=== PATIENT | male | born 1965 | race Caucasian/White ===

== ENCOUNTER → 2016-07-21 | Outpatient (CLI) | payer MEDICAID ==
--- NOTE | 2016-07-22 09:46 | ECHOF ---
Referral Reason:I42 cardiomyopathy MEASUREMENTS -------- HEIGHT: 180.3 cm WEIGHT: 95.3 kg BP: IVSd: 1.0 cm (0.6 - 1.1) LVIDd: 6.5 cm (3.9 - 5.3) LVPWd: 1.3 cm (0.6 - 1.1) IVSs: 1.0 cm LVIDs: 5.7 cm LVPWs: 1.1 cm Ao Diam: 3.3 cm (2.0 - 3.7) AV Cusp: 2.2 cm (1.5 - 2.6) LA Diam: 4.6 cm (2.7 - 3.8) MV EXCURSION: 16.312 mm (> 18.000) MV EF SLOPE: 115 mm/s (70 - 150) EPSS: 1.8 cm MV E Victor Hugo: 0.66 m/s MV DecT: 324 ms MV A Victor Hugo: 0.73 m/s MV E/A Ratio: 0.90 RAP: 5.00 mmHg RVSP: 44.17 mmHg FINDINGS -------- Sinus rhythm. Pacerwire seen in RV and RA. AICD Pacemaker This was a technically good study. The left ventricle is severely dilated. Left ventricular wall thickness is normal. There is severe global hypokinesis of LV . Overall left ventricular systolic function is severely impaired with, an EF between 25 - 30 %. Known cardiomyopathy The right ventricle is normal in size and function. The left atrium is moderately dilated. The right atrium is normal in size. Aortic valve is trileaflet and is mildly thickened. The mitral valve leaflets are mildly thickened. Mild mitral regurgitation is present. Mild tricuspid regurgitation present. There is mild pulmonary hypertension. The right ventricular systolic pressure, as measured by Doppler, is 44.17mmHg. Pulmonic valve appears structurally normal. The aortic root size is normal. The pericardium is normal. CONCLUSIONS -------- 1. Sinus rhythm. 2. Known cardiomyopathy 3. The right ventricle is normal in size and function. 4. The left atrium is moderately dilated. 5. The right atrium is normal in size. 6. Aortic valve is trileaflet and is mildly thickened. 7. The mitral valve leaflets are mildly thickened. 8. Mild mitral regurgitation is present. 9. Mild tricuspid regurgitation present. 10. There is mild pulmonary hypertension. 11. The right ventricular systolic pressure, as measured by Doppler, is 44.17mmHg. 12. Pacerwire seen in RV and RA. 13. Pulmonic valve appears structurally normal. 14. The aortic root size is normal. 15. The pericardium is normal. 16. AICD 17. Pacemaker 18. This was a technically good study. 19. The left ventricle is severely dilated. 20. Left ventricular wall thickness is normal. 21. There is severe global hypokinesis of LV . 22. Overall left ventricular systolic function is severely impaired with, an EF between 25 - 30 %. REVENUE AUDIT CLERK: Joanna Obregon RDCS
== END | disposition home or self-care (01) ==
LOC: RADECHMAIN 13:03
PROVIDERS: ATTEND Internal Medicine Clinical Cardiac Electrophysiology
DX: I42.9 Cardiomyopathy, unspecified (principal); I50.1 Left ventricular failure, unspecified; I08.3 Combined rheumatic disorders of mitral, aortic and tricuspid valves; I27.2 Other secondary pulmonary hypertension; Z95.810 Presence of automatic (implantable) cardiac defibrillator
CPT/HCPCS: 93306

== ENCOUNTER → 2016-09-15 | Outpatient (CLI) | payer MEDICAID ==
[2016-09-15 12:13] LABS: CH 31.2; CHCM 33.8; HCT 38.7 % (39.0-53.0); HDW 2.58; HGB 13.5 gm/dL (13.0-17.5); MCH 32.4 pg (25.0-35.0); MCHC 34.9 g/dL (31.0-37.0); MCV 92.8 fL (80.0-100.0); Mean Platelet Volume 7.2; RBC 4.16 m/uL (4.30-5.90); RDW 12.7 % (11.5-15.5); WBC 4.9 k/uL (3.8-10.6)
[2016-09-15 12:33] LABS: Anion Gap 9 mmol/L; Blood Urea Nitrogen 16 mg/dL (9-20); Calcium 9.6 mg/dL (8.4-10.2); Carbon Dioxide 26 mmol/L (22-30); Chloride 107 mmol/L (98-107); Glucose 111 mg/dL (74-99); Non-African American GFR(MDRD) >60 (>60 ml/min/1.73 sqM); Potassium 4.7 mmol/L (3.5-5.1); Sodium 142 mmol/L (137-145)
== END | disposition home or self-care (01) ==
LOC: LABWHC1 11:46
PROVIDERS: ATTEND Internal Medicine Clinical Cardiac Electrophysiology
DX: E78.2 Mixed hyperlipidemia (principal); I42.0 Dilated cardiomyopathy; I47.2 Ventricular tachycardia
CPT/HCPCS: 36415; 80048; 85027

== ENCOUNTER 2016-09-19 06:00 | Day surgery (SDC) | payer MEDICAID ==
[2016-09-14 14:28] VITALS: BMI 27.1
[~2016-09-19 06:00] MED LIST: LACTATED RINGERS 1,000 ML IV SCH; SODIUM CHLORIDE 0.9% 1,000 ML IV SCH
[2016-09-19] MEDS ORDERED: MIDAZOLAM 2 MG/2 ML VIAL IV ONE (06:50)
[2016-09-19] MEDS ORDERED: fentaNYL (PF) 50 MCG/ML 2 ML AMP ONE (07:21)
[2016-09-19] MEDS ORDERED: HEPARIN SODIUM,PORCINE 10,000 UNIT/ML 1 ML VIAL ONE (07:21)
[2016-09-19] MEDS ORDERED: METOPROLOL TARTRATE 5 MG/5 ML VIAL IVP ONE (07:21)
[2016-09-19] MEDS ORDERED: ISOPROTERENOL 250 MCG/1.25 ML SYR IV ONE (07:21)
[2016-09-19] MEDS ORDERED: IV FLUID CONTINUATION 1,000 ML IV ONE (07:21)
[2016-09-19] MEDS ORDERED: PROPOFOL 10 MG/ML 20 ML VIAL IV ONE (07:21)
[2016-09-19] MEDS ORDERED: PROTAMINE SULFATE 10 MG/ML 5 ML VIAL IV ONE ×3 (07:21→12:39)
[2016-09-19] MEDS ORDERED: MIDAZOLAM 2 MG/2 ML VIAL ONE (07:21)
[2016-09-19] MEDS ORDERED: ceFAZolin 1,000 MG/50 ML BAG (PMX) IV ONE ×2 (07:55)
[2016-09-19] MEDS ORDERED: HEPARIN SODIUM,PORCINE/D5W PMX 25,000 UNIT in DEXTROSE/WATER 1 500ML.BAG IV ONE (08:25)
[2016-09-19] MEDS ORDERED: LIDOCAINE 2% INJ 20 MG/ML SQ ONE (08:27)
[2016-09-19] MEDS ORDERED: HEPARIN SODIUM (1,000 UNIT/ML) 1,000 UNIT in SODIUM CHLORIDE 0.9% 1,000 ML IRRIGATION ONE (08:41)
[2016-09-19] MEDS ORDERED: FUROSEMIDE 40 MG TAB PO STA (12:45)
[2016-09-19] MEDS ORDERED: HYDROcodone/APAP 5-325MG 1 EACH TAB PO PRN (12:46)
[2016-09-19] MEDS ORDERED: ACETAMINOPHEN TAB 325 MG TAB PO PRN (12:46)
[2016-09-19] MEDS ORDERED: ACETAMINOPHEN IV (For NPO) 1,000 MG in EMPTY BAG 1 BAG IVPB ONE (13:00)
--- NOTE | 2016-09-19 13:38 | P.PCN ---
Preoperative Diagnosis: Indication for the procedure Very frequent ventricular ectopy and regular couplets and nonsustained ventricular tachycardia, high PVC burden in the setting of cardiomyopathy and ineffective Bi V pacing secondary to reduction in Bi V pacing percentage, history of nonischemic cardio myopathy and heart failure status post Bi V ICD in the past, underlying left bundle branch block pattern Procedures performed Bi V ICD interrogation and reprogramming prior to the procedure, [place] [address] Drug stimulation, [address] Intracardiac echo, anatomic mapping 3-D mapping of the left ventricle, activation mapping and pace mapping VT ablation/PVC-1 ablation VT ablation/PVC 2 ablation VT ablation /PVC 3 ablation Bi V ICD interrogation with reprogramming following the procedure Details Patient had very frequent ventricular ectopy of multiple different morphologies with 3 dominant morphologies which were targeted. All had upright QRS is in the inferior leads with an atypical right bundle branch block pattern in V1 of different morphologies specifically in V1 and lead 1. Delta wave-like configuration of the PVCs suggestive of a deep focus PVC burden was evaluated during Bi V pacing, no ventricular pacing and then finally with atrial pacing at 70 beats a minute Procedures performed with atrial pacing at 70 bpm, ICD therapies were turned off Lead position was documented preprocedure At the end of the procedure ICD was interrogated and reprogrammed lead sensing and thresholds and impedances were stable On fluoroscopy leads was stable as at baseline 8-Japanese arterial sheath in femoral artery and right side 8-Japanese arterial sheath in the right femoral vein and 10-Japanese femoral sheath in the left femoral vein Diagnostic catheters intracardiac echo catheter mapping and ablation cath was placed sequentially Underlying left bundle branch block pattern with very frequent ventricular ectopy AH 106 ms, HV 21 ms HRA pacing performed No SVT no slow pathway no delta waves Ventricular pacing performed no sustained VT induced Increase in PVC and nonsustained frequency burden with Isuprel but no sustained VT Intracardiac echocardiography was performed No intracardiac masses or thrombi either in the atria or in the right or left ventricle Left atrial and right atrial appendage was identified no masses No masses in the left ventricle 3-D mapping, anatomic of the left ventricle performed Aortic root and aortic cusps carefully delineated Mapping of the aortic cusps both RCC and LCC, performed with intracardiac echo guidance during the procedure, activation mapping Earliest foci within the cusps was at the commissure between the LCC and RCC, but this site was later than just under the aortic valve Pace mapping around the base of the left ventricle in the anterior mitral area lateral mitral area mid LV and aortopulmonary continuity as well as anterior LV OT Conventional and 3-D activation mapping of 3 PVCs/VT foci Sub-optimal pace maps. Best pace map in the anterior LV OT of 82% between 80 and 85% for the 3 PVCs Activation mapping of the PVCs performed individually 3 distinct foci, activation mapping revealed far field bipolar and unipolar signals Earliest far field electrograms targeted for all 3 PVCs Ablation of the 3 PVCs performed sequentially with a significant reduction in PVC burden despite the fact that they were definitely be foci. RF ablation of 2 over the PVCs showed complete suppression during RF ablation. PVCs would return after ablation but at a much lower frequency Maximum power between 20-30 W, contact force between 10 and 23 g LAD identified and tagged on intracardiac echo. The foci were somewhat medial to the LAD At the end of the procedure intracardiac echo revealed no evidence for any pericardial effusion All catheters were removed and hemostasis assured Impression Very frequent PVCs nonsustained ventricular tachycardia interfering with successful inadequate biventricular pacing in this gentleman with known cardiac myopathy status post Bi V ICD underlying left bundle branch block and is known chronic CHF on appropriate medical treatment PVCs of multiple different morphologies with at least 3 distinct, dominant PVC morphologies R targeted for ablation in the LVOT, anteriorly. Deep focus, poor pace maps, far field electrograms on activation mapping, suppression of PVCs during RF ablation with a significant reduction in PVC burden following ablation of the 3 PVCs Postoperative Diagnosis: Procedure(s) Performed: Implants: Indications for Procedure: Operative Findings: Description of Procedure:
--- NOTE | 2016-09-19 14:18 | P.PCN ---
Preoperative Diagnosis: Postprocedure Bi V ICD interrogation with reprogramming Atrial pacing threshold 0.5 V at 0.5 ms, P waves 5 mV pacing impedance 360 ohms RV pacing threshold 1.4 V at 0.5 ms, R waves 12 mV and pacing impedance 650 ohms LV pacing threshold 0.75 V at 0.5 ms, pacing impedance 830 ohms high-voltage impedance 65 ohms Tachycardia therapies turned on, 3 zones with appropriate antitachycardia pacing cardioversions and defibrillations Bradycardia pacing DDDR 70-1:30 bpm short AV delay 120 ms LV pacing earlier by 50 milliseconds Postoperative Diagnosis: Procedure(s) Performed: Implants: Indications for Procedure: Operative Findings: Description of Procedure:
[2016-09-19] MEDS: CARVEDILOL 12.5 MG TAB PO SCH ×2 (17:26→17:57)
[2016-09-19] MEDS ORDERED: ATORVASTATIN 20 MG TAB PO SCH (21:00)
[2016-09-20 00:56] VITALS: TEMP 98.1
--- NOTE | 2016-09-20 07:28 | P.DS ---
Providers Attending physician: Calvin Nicholson Primary care physician: [facility] Course: Patient is doing well. His groins have healed well. He has no chest discomfort no dizziness lightheadedness. He is ablating in the hallways. On examination his blood pressures 132/78 mmHg pulse rate is in normal range respirations normal he is afebrile Heart sounds S1 and S2 are normal no murmurs no gallops Breath sounds are normal no rhonchi no crackles Abdomen is soft Extremities are warm no edema groin is healed well no hematoma no bleeding Impression History of nonischemic myopathy with a left bundle branch block status post biventricular ICD implantation several years back and with a recent diagnosis of increased PVC burden with very frequent PVCs ventricular couplets and triplets and nonsustained ventricular tachycardia resulting in a significant reduction in biventricular pacing percentage EP study revealed multiple different morphologies of PVCs of a very high frequency At the start of the study he had more ventricular arrhythmias than normal beats There are 3 dominant and distinct PVC/VT morphologies. The other morphologies were at a much lower frequency 3 PVC / VT morphologies were targeted and successfully ablated along the anterior aspect of the left ventricular outflow tract/basal anterior wall. The aortic cusps were also mapped It was evident that the ventricular foci were deep, based upon 1. Pace map concordance between 80-85% 2. Far field bipolar and unipolar signals at the earliest sites of activation 3. Suppression of PVC that was being targeted during RF ablation with return in the PVCs once RF was turned off despite good power and contact force However, despite this, there was a very significant reduction in his overall PVC burden after ablation at 3 VT sites Patient continues to have PVCs as well as 1 run of nonsustained VT from the right ventricular outflow tract. PVC burden is significantly reduced plan dc home cardiac mri to look for delayed enhancement patterns in the future biv icd function Patient Condition at Discharge: Stable Plan - Discharge Summary New Discharge Prescriptions: No Action Rosuvastatin Calcium [Crestor] 10 mg PO HS Quinapril HCl [Accupril] 10 mg PO DAILY Carvedilol [Carvedilol] 25 mg PO BID Venlafaxine HCl [Effexor XR] 37.5 mg PO DAILY Discharge Medication List Carvedilol [Carvedilol] 25 mg PO BID 03/29/14 [History] Quinapril HCl [Accupril] 10 mg PO DAILY 03/29/14 [History] Rosuvastatin Calcium [Crestor] 10 mg PO HS 03/29/14 [History] Venlafaxine HCl [Effexor XR] 37.5 mg PO DAILY 09/14/16 [History] Activity/Diet/Wound Care/Special Instructions: Driss will call you with an appointment for outpatient MRI of the heart
[2016-09-20 07:54] VITALS: BP 139/71; PULSE 71; RESP 16
[2016-09-20] MEDS: CARVEDILOL 12.5 MG TAB PO SCH (08:23)
[2016-09-20] MEDS ORDERED: LISINOPRIL 10 MG TAB PO SCH (09:00)
[2016-09-20] MEDS ORDERED: VENLAFAXINE HCL ER 37.5 MG CAP PO SCH (09:00)
--- NOTE | 2016-09-22 15:26 | MISC ---
Dear Dr. Salazar: I had the pleasure of seeing Jesse Palencia in electrophysiology follow up. As you know he has a history of cardiomyopathy and bi-V ICD with very frequent ventricular ectopy interfering with adequate biventricular pacing. He underwent diagnostic EP study and a detailed mapping of his PVCs. When we started the case he had very frequent PVCs of multiple different morphologies including short runs of nonsustained ventricular tachycardia. There were at least 3 dominant morphologies with multiple other PVCs also. These three dominant morphologies were targeted for mapping. The 12-lead ECG as well as the mapping revealed that these were deep foci in the anterior left ventricular outflow tract. However, despite that successful ablation of the PVC was performed with a very significant reduction in PVC burden. He continues to have PVC of one more morphology now, but the percentage is significantly reduced. At this time I would recommend a cardiac MRI to look at his ventricles to see if we can figure out why he has this cardiomyopathy particularly looking for evidence for sarcoidosis. I will schedule this for him and will send a follow up note and thereafter. All his medications have been restarted. I have also reprogrammed his biventricular pacemaker to a base rate of 70 beats per minute at least for the next three months. It seems that his PVC burden was lower when he was pacing at a slightly faster atrial rate. Thank you for entrusting the care of your patient. Warm regards, WESTLEY
== END 2016-09-20 10:15 | disposition home or self-care (01) ==
LOC: CATHEP 06:00 → 3OBS 12:15 → CATHEP 09-20 10:15
PROVIDERS: ATTEND Internal Medicine Clinical Cardiac Electrophysiology
DX: Z45.02 Encounter for adjustment and management of automatic implantable cardiac defibrillator (principal); I49.3 Ventricular premature depolarization; I47.2 Ventricular tachycardia; I42.0 Dilated cardiomyopathy; I45.2 Bifascicular block; E78.2 Mixed hyperlipidemia; I10 Essential (primary) hypertension; F32.9 Major depressive disorder, single episode, unspecified; F17.211 Nicotine dependence, cigarettes, in remission; Z79.82 Long term (current) use of aspirin; Z79.899 Other long term (current) drug therapy
CPT/HCPCS: 93623; 93662; 93654; 85347; C1894 ×2; C1769 ×3; C1730; C1759; C1732; J2001; J2250; J2720; J1644 ×3; J3010; J0690; J2704

== ENCOUNTER → 2017-10-01 | Outpatient (CLI) | payer MEDICAID ==
--- NOTE | 2017-10-01 18:17 | ECHOF ---
Referral Reason:I42.9 Cardiomyopathy other disease elsewhere MEASUREMENTS -------- HEIGHT: 182.9 cm WEIGHT: 86.2 kg BP: IVSd: 0.8 cm (0.6 - 1.1) LVIDd: 6.9 cm (3.9 - 5.3) LVPWd: 0.9 cm (0.6 - 1.1) IVSs: 1.2 cm LVIDs: 5.7 cm LVPWs: 1.5 cm LA Diam: 4.5 cm (2.7 - 3.8) RVIDd: 2.8 cm (< 3.3) LAESV Index (A-L): 40.97 ml/m Ao Diam: 3.2 cm (2.0 - 3.7) LA Diam: 4.7 cm (2.7 - 3.8) AV Cusp: 1.6 cm (1.5 - 2.6) EPSS: 1.8 cm MV E Victor Hugo: 0.42 m/s MV DecT: 249 ms MV A Victor Hugo: 0.33 m/s MV E/A Ratio: 36.74 RAP: 5.00 mmHg RVSP: 15.47 mmHg MV EF SLOPE: 82.60 mm/s (70 - 150) MV EXCURSION: 20.48 mm (> 18.000) FINDINGS -------- Paced rhythm. This was a technically good study. The left ventricle is severely dilated. Overall left ventricular systolic function is severely impa ired with, an EF between 25 - 30 %. Anterseptal Hypokinesis Inferior Hypokinesis Septal Hypokin esis The right ventricle is normal in size. The left atrium is markedly dilated. LA is severely dilated >40 ml/m2 The right atrial size is normal. The aortic valve is trileaflet, and appears structurally normal. No aortic stenosis or regurgitation. Mild mitral annular calcification present. Mild mitral regurgitation is present. Mild tricuspid regurgitation present. There is no evidence of pulmonary hypertension. The right v entricular systolic pressure, as measured by Doppler, is 15.47mmHg. Trace/mild (physiologic) pulmonic regurgitation. The aortic root size is normal. There is no pericardial effusion. CONCLUSIONS -------- 1. Paced rhythm. 2. The left ventricle is severely dilated. 3. Overall left ventricular systolic function is severely impaired with, an EF between 25 - 30 %. 4. Anterseptal Hypokinesis 5. Inferior Hypokinesis 6. Septal Hypokinesis 7. The right ventricle is normal in size. 8. The left atrium is markedly dilated. 9. LA is severely dilated >40 ml/m2 10. The right atrial size is normal. 11. The aortic valve is trileaflet, and appears structurally normal. No aortic stenosis or regurgitat ion. 12. Mild mitral annular calcification present. 13. Mild mitral regurgitation is present. 14. Mild tricuspid regurgitation present. 15. There is no evidence of pulmonary hypertension. 16. Trace/mild (physiologic) pulmonic regurgitation. 17. The aortic root size is normal. 18. There is no pericardial effusion. PASTE THINNER: Dana Deleon RDCS
== END ==
LOC: RADECHMAIN 08:28
PROVIDERS: ATTEND Internal Medicine Interventional Cardiology
DX: I08.1 Rheumatic disorders of both mitral and tricuspid valves (principal)
CPT/HCPCS: 93306

== ENCOUNTER → 2021-07-25 | Outpatient (CLI) | payer MEDICAID ==
[2021-07-25 14:25] LABS: Basophils # (A) 0.01 X 10*3/uL (0.00-0.10); Basophils % (A) 0.1 %; Eosinophils # (A) 0.08 X 10*3/uL (0.04-0.35); Eosinophils % (A) 1.1 %; HCT 44.7 % (39.6-50.0); HGB 14.5 g/dL (13.0-17.0); Immature Grans, Automated 0.3 %; Lymphocytes # (A) 1.69 X 10*3/uL (0.90-5.00); Lymphocytes % (A) 23.9 %; MCHC 32.4 g/dL (32.0-37.0); MCV 95.7 fL (80.0-97.0); Mean Platelet Volume 9.9 fL (9.5-12.2); Monocytes % (A) 9.9 %; NRBC Per 100 WBC 0 /100 WBCS (0.0-0.0); Neutrophils # (A) 4.56 X 10*3/uL (1.80-7.70); Neutrophils % (A) 64.7 %; Platelet Count 260 X 10*3/uL (140-440); RBC 4.67 X 10*6/uL (4.40-5.60); RDW 12.6 % (11.5-14.5); WBC 7.06 X 10*3/uL (4.50-10.00)
[2021-07-25 15:38] LABS: ALT 24 U/L (10-49); AST 19 U/L (14-35); African American GFR (CKD) 115.3 (60.0-200.0); Albumin 4.8 g/dL (3.8-4.9); Albumin/Globulin Ratio 2.27 (1.60-3.17); Alkaline Phosphatase 54 U/L (41-126); BUN/Creat Ratio 18.76 Ratio (12.00-20.00); Blood Urea Nitrogen 15.4 mg/dL (9.0-27.0); Calcium 9.5 mg/dL (8.7-10.3); Carbon Dioxide 27.9 mmol/L (20.0-27.5); Chloride 104 mmol/L (96-109); Creatine Kinase 117 U/L (35-257); Globulin 2.1 g/dL (1.6-3.3); Glucose 112 mg/dL (70-110); LDL Cholesterol,Calculated 102.4 mg/dL (0.0-131.0); Non-African American GFR(CKD) 99.5 (60.0-200.0); Potassium 4.2 mmol/L (3.5-5.5); Sodium 139 mmol/L (135-145); Total Protein 6.9 g/dL (6.2-8.2); VLDL Calculation 17.34 mg/dL (5.00-40.00)
== END | disposition home or self-care (01) ==
LOC: LABWHC1 09:22
PROVIDERS: ATTEND Family Medicine
DX: I50.9 Heart failure, unspecified (principal); E78.5 Hyperlipidemia, unspecified; R73.03 Prediabetes
CPT/HCPCS: 36415; 80053; 80061; 82550; 83036; 83880; 85025

== ENCOUNTER 2021-08-31 08:08 | Day surgery (SDC) | payer MEDICAID ==
[~2021-08-31 08:08] MED LIST changes: +LIDOCAINE 1% (10MG/ML) FOR IV START INTRADERMA PRN; -SODIUM CHLORIDE 0.9% 1,000 ML IV SCH
[2021-08-31 08:31] VITALS: TEMP 96.9
[2021-08-31] MEDS ORDERED: PROPOFOL 10 MG/ML 20 ML VIAL IV ONE (09:12)
--- NOTE | 2021-08-31 09:29 | P.PCN ---
Date of Procedure: 08/31/21 Procedure(s) Performed: BRIEF HISTORY: Patient is a 56-year-old pleasant white male scheduled for an elective colonoscopy as a part of screening for colorectal neoplasia and family history of colon cancer diagnosed in his father. PROCEDURE PERFORMED: Colonoscopy snare polypectomy. PREOPERATIVE DIAGNOSIS: Screening for colon cancer and family history of colon cancer. IV sedation per Anesthesia. PROCEDURE: After informed consent was obtained, the patient, was brought into the endoscopy unit. IV sedation was administered by Anesthesia under continuous monitoring. Digital rectal examination was normal. Initially the Olympus CF-160 flexible video colonoscope was then inserted in the rectum, gradually advanced into the cecum without any difficulty. Careful examination was performed as the scope was gradually being withdrawn. Ileocecal valve and the appendiceal orifice were visualized and appeared normal. Prep was excellent. Mucosa of the cecum, ascending colon, transverse colon, descending colon, normal. In the proximal sigmoid colon at 35 cm from the anal verge there was a 7-8 mm broad-based polyp that was removed by snare polypectomy. Rest of the sigmoid colon, and rectum appeared normal. Retroflexion was performed in the rectum and no lesions were seen. The patient tolerated the procedure well. IMPRESSION: 7-8 mm broad-based sigmoid colon polyp status post snare polypectomy Rest of the colon appeared normal RECOMMENDATIONS: Findings of this examination were discussed with the patient as well as his family. He was advised to follow with the biopsy results and have a repeat colonoscopy in 5 years because of family history of colon cancer
[2021-08-31 09:52] VITALS: BP 152/81; PULSE 52; RESP 17
== END 2021-08-31 10:15 | disposition home or self-care (01) ==
LOC: ORWHC2ENDO 08:08
PROVIDERS: ATTEND Internal Medicine Gastroenterology
DX: Z12.11 Encounter for screening for malignant neoplasm of colon (principal); D12.5 Benign neoplasm of sigmoid colon; Z80.0 Family history of malignant neoplasm of digestive organs
CPT/HCPCS: 45385; 88305; J2704

== ENCOUNTER 2022-10-01 21:47 | Emergency (ER) | payer MEDICAID, OTHER ==
[2022-10-01 21:54] VITALS: RESP 18; TEMP 97.8
[2022-10-01] MEDS ORDERED: LIDOCAINE 1% INJ 10MG/ML (30 ML VIAL-PF) SQ ONE (22:19)
[2022-10-01] MEDS ORDERED: DIPH,PERTUS(ACELL)TETVAC-LF 0.5 ML VIAL IM ONE (22:37)
--- NOTE | 2022-10-01 23:39 | ED ---
General Adult HPI - General Chief complaint: Wound/Laceration Stated complaint: L Pinky Lac Time Seen by Provider: 10/01/22 22:08 Source: patient, RN notes reviewed Mode of arrival: ambulatory Limitations: no limitations - History of Present Illness Initial comments: 57-year-old male with no significant past medical history presents to the emergency department with a chief complaint of left pinky laceration. Patient reports that he was working on cutting drywall when the knife slipped and cut his left ureter. He denies any numbness, tingling, weakness in the extremity. Denies anticoagulant use. He is unsure of last tetanus vaccine - Related Data Home Medications Medication Instructions Recorded Confirmed Carvedilol 25 mg PO BID 03/29/14 08/30/21 Quinapril HCl [Accupril] 20 mg PO DAILY 03/29/14 08/30/21 Rosuvastatin Calcium [Crestor] 10 mg PO HS 03/29/14 08/30/21 Venlafaxine HCl [Effexor XR] 75 mg PO DAILY 09/14/16 08/30/21 Cholecalciferol [Vitamin D3 (25 25 mcg PO DAILY 08/30/21 08/30/21 Mcg = 1000 Iu)] Cinnamon Bark [Cinnamon] 500 mg PO DAILY 08/30/21 08/30/21 Allergies Allergy/AdvReac Type Severity Reaction Status Date / Time No Known Allergies Allergy Verified 08/30/21 08:37 Review of Systems ROS Statement: Those systems with pertinent positive or pertinent negative responses have been documented in the HPI. ROS Other: All systems not noted in ROS Statement are negative. Past Medical History Additional Past Medical History / Comment(s): cardiomypathy History of Any Multi-Drug Resistant Organisms: None Reported Past Surgical History: Pacemaker Past Psychological History: Depression Past Alcohol Use History: Occasional Past Drug Use History: None Reported General Exam - General Exam Comments Initial Comments: General: Alert, in no acute distress Head: atraumatic normocephalic. Eyes PERRL, EOMI intact, mucous membranes moist Respiratory: Lungs clear to auscultation bilaterally Cardiovascular: Rate regular rate and rhythm Abdominal: Soft without guarding or rebound Extremities: Normal inspection with full range of motion and normal capillary refill, left fifth digit with 2 cm laceration with skin flap over it. Distal NBI remains intact. Full range of motion, no crepitus Neuroogic: alert and oriented 3, CN II-XII intact, able to ambulate with steady gait Skin: warm dry and intact with normal color Limitations: no limitations Course Vital Signs 10/01/22 10/01/22 21:51 23:55 Temperature 97.8 F Pulse Rate 61 63 Respiratory 18 18 Rate Blood Pressure 121/73 113/62 O2 Sat by Pulse 97 94 L Oximetry Procedures - Laceration Laceration #1 Consent Obtained: verbal consent Indication: laceration Site: other (Left fifth digit) Depth: simple, single layer Sedation/Analgesia: midazolam Anesthetic Used: benzocaine 0.25%, lidocaine 1% Anesthesia Technique: local infiltration, nerve block Amount (mls): 10 Pre-repair: wound explored, irrigated extensively Type of Sutures: vicryl Size of Sutures: 5-0 Number of Sutures: 6 Technique: simple, interrupted Complications: pain, bleeding, nerve injury Patient Tolerated Procedure: well, no complications Additional Comments: Distal NVI status post suture placement Medical Decision Making - Medical Decision Making Was pt. sent in by a medical professional or institution (Dr. PA, MOTOR DRIVER, urgent care, hospital, or intermediate...) When possible be specific @ -[No] Did you speak to anyone other than the patient for history (EMS, parent, family, police, friend...)? What history was obtained from this source @ -[No] Did you review nursing and triage notes (agree or disagree)? Why? @ -[I reviewed and agree with nursing and triage notes] Were old charts reviewed (outside hosp., previous admission, EMS record, old EKG, old radiological studies, urgent care reports/EKG's, intermediate records)? Report findings @ -[No old charts were reviewed] Differential Diagnosis (chest pain, altered mental status, abdominal pain women, abdominal pain men, vaginal bleeding, weakness, fever, dyspnea, syncope, headache, dizziness, GI bleed, back pain, seizure, CVA, palpatations, mental health, musculoskeletal)? @ -[not applicable] EKG interpreted by me (3pts min.). @ -[As above] X-rays interpreted by me (1pt min.). @ -[None done] CT interpreted by me (1pt min.). @ -[None done] U/S interpreted by me (1pt. min.). @ -[None done] What testing was considered but not performed or refused? (CT, X-rays, U/S, labs)? Why? @ -[None] What meds were considered but not given or refused? Why? @ -[None] Did you discuss the management of the patient with other professionals (professionals i.e. , PA, MOTOR DRIVER, lab, RT, psych nurse, social media intern, admiralty lawyer, teacher, youth liaison officer, case technician)? Give summary @ -[No] Was smoking cessation discussed for >3mins.? @ -[No] Was critical care preformed (if so, how long)? @ -[No] Were there social determinants of health that impacted care today? How? (Homelessness, low income, unemployed, alcoholism, drug addiction, transportation, low edu. Level, literacy, decrease access to med. care, longterm, rehab)? @ -[No] Was there de-escalation of care discussed even if they declined (Discuss DNR or withdrawal of care, Hospice)? DNR status @ -[No] What co-morbidities impacted this encounter? (DM, HTN, Smoking, COPD, CAD, Cancer, CVA, ARF, Chemo, Hep., AIDS, mental health diagnosis, sleep apnea, morbid obesity)? @ -[None] Was patient admitted / discharged? Hospital course, mention meds given and route, prescriptions, significant lab abnormalities, going to OR and other pertinent info. @ -Discharged. This is a 57-year-old male who presents the emergency department with left finger laceration. Physical exam reveals 2 cm laceration to left pinky. Range of motion remains intact 2+ radial pulses distal neurovascularly intact. Patient had 6 sutures placed in the emergency department which he tolerated well. Return precautions were discussed at length. Patient updated on tetanus vaccine while in ED Patient discharged in stable condition. Case discussed with CASANDRA Sanchez who agrees with plan of care Undiagnosed new problem with uncertain prognosis? @ -[No] Drug Therapy requiring intensive monitoring for toxicity (Heparin, Nitro, Insulin, Cardizem)? @ -[No] Were any procedures done? @ -[No] Diagnosis/symptom? @ -Left 5th Digit Laceration Acute, or Chronic, or Acute on Chronic? @ -Acute Uncomplicated (without systemic symptoms) or Complicated (systemic symptoms)? @ -Uncomplicated Side effects of treatment? @ -[No] Exacerbation, Progression, or Severe Exacerbation? @ -[No] Poses a threat to life or bodily function? How? (Chest pain, [place], [place], pneumonia, PE, COPD, DKA, ARF, appy, cholecystitis, CVA, Diverticulitis, Homicidal, Suicidal, threat to staff... and all critical care pts) @ -Low likelihood Disposition Clinical Impression: Laceration Disposition: HOME SELF-CARE Condition: Stable Instructions (If sedation given, give patient instructions): Care For Your Stitches (DC), Laceration (ED) Additional Instructions: Please return to the nearest emergency department symptoms worsen or persist Is patient prescribed a controlled substance at d/c from ED?: No Referrals: Arnold Salazar MD [Primary Care Provider] - 1-2 days Time of Disposition: 23:38
[2022-10-01 23:57] VITALS: BP 113/62; PULSE 63
== END 2022-10-01 23:56 | disposition home or self-care (01) ==
LOC: EC 21:47
DX: S61.217A Laceration without foreign body of left little finger without damage to nail, initial encounter (principal); F32.A Depression, unspecified; Z79.899 Other long term (current) drug therapy; Z23 Encounter for immunization; W26.0XXA Contact with knife, initial encounter; Y99.0 Civilian activity done for income or pay
CPT/HCPCS: 90715; 99282; 90471; 12001; J2001

== ENCOUNTER → 2023-10-25 | Outpatient (CLI) | payer OTHER ==
[2023-10-25 23:40] LABS: ALT 41 U/L (10-49); AST 26 U/L (14-35); Albumin 4.7 g/dL (3.8-4.9); Albumin/Globulin Ratio 2.61 Ratio (1.60-3.17); Alkaline Phosphatase 67 U/L (41-126); Blood Urea Nitrogen 24.3 mg/dL (9.0-27.0); Calcium 9.6 mg/dL (8.7-10.3); Carbon Dioxide 24.5 mmol/L (21.6-31.8); Chloride 106 mmol/L (96-109); Chol/HDL Ratio 3.29 Ratio; Globulin 1.8 g/dL (1.6-3.3); Glucose 106 mg/dL (70-110); LDL Cholesterol,Calculated 96.2 mg/dL (0.0-131.0); Potassium 4.4 mmol/L (3.5-5.5); Sodium 143 mmol/L (135-145); Total Bilirubin 0.3 mg/dL (0.3-1.2); Total Protein 6.5 g/dL (6.2-8.2)
[2023-10-25 23:43] LABS: NT-Pro-B-Type Natriuretic Pept 428 pg/mL (0-125)
== END | disposition home or self-care (01) ==
LOC: LABWHC1 14:11
PROVIDERS: ATTEND Internal Medicine Interventional Cardiology
DX: I42.8 Other cardiomyopathies (principal); E78.2 Mixed hyperlipidemia
CPT/HCPCS: 36415; 80053; 80061; 83880